=== PATIENT | male | born 1975 | race Caucasian/White ===

== ENCOUNTER 2024-02-18 08:46 | Outpatient (CLI) | payer OTHER ==
--- NOTE | 2024-02-18 09:25 | XRAY Report ---
PROCEDURE: Lumbar Spine 2-3V INDICATIONS: STRAIN OF MUSCLE, FASCIA, AND TENDON OF LOWER BACK TECHNIQUE: 3 views of the lumbar spine were acquired. COMPARISON: None. FINDINGS: Bones: 5 [id number] vertebrae are present. There is normal bony alignment. Very mild degenerat murray endplate changes are seen at L3-4 and L4-5 levels. No vertebral body compression fractures. No s uspicious bony lesions. Soft tissues: Overlying bowel gas pattern is normal. No suspicious soft tissue calcifications. IMPRESSION: No acute compression fracture or spondylolisthesis in lumbar spine. Very mild degenerative endplate c hanges in lower lumbar spine. Reviewed by: Travis Angeles MD on 02/18/2024 9:24 AM PDT Approved by: Travis Angeles MD on 02/18/2024 9:24 AM PDT Station ID: [id number]
== END 2024-02-18 08:47 | disposition home or self-care (01) ==
LOC: DI.N 08:46
PROVIDERS: ATTEND Physician Assistant Medical
DX: M47.816 Spondylosis without myelopathy or radiculopathy, lumbar region (principal)

== ENCOUNTER 2024-02-25 07:30 | Outpatient (CLI) | payer MEDICAID ==
[2024-02-25 18:19] LABS: CHLAMYDIA TRACHOMATIS DNA NEGATIVE (NEGATIVE); NEISSERIA GONORRHOEAE DNA NEGATIVE (NEGATIVE); TRICHOMONAS VAGINALIS DNA NEGATIVE (NEGATIVE)
[2024-02-26 03:09] LABS: HSV 2 IGG TYPE SPEC 5.58 index (0.00-0.90)
[2024-02-26 05:15] LABS: RPR Non Reactive (Non Reactive)
[2024-02-26 06:10] LABS: HIV SCREEN 4TH GENERATION Non Reactive (Non Reactive)
[2024-02-27 01:08] LABS: HCV AB Non Reactive (Non Reactive)
== END 2024-02-25 07:45 | disposition home or self-care (01) ==
LOC: LAB.N 07:30
PROVIDERS: ATTEND Family Medicine
DX: R36.9 Urethral discharge, unspecified (principal)
CPT/HCPCS: 36415; 86592; 86695; 86696; 86803; 87389; 87491; 87591; 87661

== ENCOUNTER 2024-04-16 08:00 | Outpatient (CLI) | payer MEDICAID ==
--- NOTE | 2024-04-16 19:47 | XRAY Report ---
PROCEDURE: Finger(s) RT INDICATIONS: RIGHT THUMB PAIN TECHNIQUE: AP hand, 2 views of the first finger(s) acquired. COMPARISON: None FINDINGS: Bones: No fractures or dislocations. No suspicious bony lesions. Soft tissues: No suspicious soft tissue calcifications. IMPRESSION: Normal right thumb radiographs Reviewed by: Donald Jerry MD on 04/16/2024 6:46 PM AKDT Approved by: Donald Jerry MD on 04/16/2024 6:46 PM AKDT Station ID: [id number]
== END 2024-04-16 23:59 | disposition home or self-care (01) ==
LOC: DI.S 08:00
PROVIDERS: ATTEND Registered Nurse
DX: M79.644 Pain in right finger(s) (principal); L03.019 Cellulitis of unspecified finger